=== PATIENT | male | born 1935 | race Caucasian/White ===

== ENCOUNTER → 2016-08-21 | Outpatient (CLI) | payer OTHER, BC ==
[~2016-08-21] MED LIST: APIDRA SOL100 UNIT/1 SC; BUMEX2 MG PO; CALCIUM + VITA1 EAC2 PO; DIOVAN160 MG PO; ERGOCALCIF50000 UNIT PO; HYDROCODON-ACE1 EAC7 PO; KLOR-CON M2020 MEQ PO; LANTUS 3 M100 UNITS1 SC; LEVAQUIN750 MG PO; LIPITOR20 MG PO; LO-DOSE ASPIRIN81 M1 PO; METOPROLOL TART25 MG PO; NORVASC10 MG PO; PREDNISONE20 MG PO; TOPROL XL25 MG PO; TRAMADOL HCL50 MG PO; TYLENOL EXTRA500 MG PO; VENTOLIN HFA18 GM IH; WARFARIN SODIU7.5 MG PO; WARFARIN SODIUM1 MG PO; WARFARIN SODIUM6 MG PO
== END | disposition home or self-care (01) ==
LOC: RAD 14:36
DX: R06.00 Dyspnea, unspecified (principal)
CPT/HCPCS: 70490; 71250

== ENCOUNTER 2016-12-23 19:34 | Inpatient (IN) | payer OTHER, BC ==
[~2016-12-23] VITALS: Ht 172.7 cm; Wt 118.1 kg
[~2016-12-23 19:34] MED LIST changes: +WARFARIN SODIUM5 MG PO; -WARFARIN SODIUM6 MG PO
[2016-12-23 21:05] LABS: INTER. NORMALIZED RATIO 2.2; PROTHROMBIN TIME 25.3 SEC (10.2-12.9)
[2016-12-23 21:09] LABS: CHLORIDE 98 mEq/L (99-109); POTASSIUM 4.9 mEq/L (3.7-5.4); SODIUM 135 mEq/L (136-147)
[2016-12-23 21:11] LABS: EOSINOPHIL (%) 0.2 % (0-5); GLUCOSE 201 mg/dL (70-99); HEMATOCRIT 32.3 % (38.0-50.0); IMMATURE GRANULOCYTE (%) 0.7 % (0.0-0.7); IMMATURE GRANULOCYTE COUNT 0.1 K/uL; INSTRUMENT ABS NEUTROPHIL CT 7.6 K/uL; LYMPHOCYTE COUNT 1.2 K/uL (1.0-2.8); MCV 73.2 FL (86-99); MONOCYTE (%) 12.5 % (3-12); MONOCYTE COUNT 1.3 K/uL (0-0.8); NEUTROPHIL (%) 74.7 % (45-76); NEUTROPHIL COUNT 7.6 K/uL (1.8-6.4); PLATELET COUNT 176 K/uL (156-360); RBC DIS.WIDTH-CV 19.9 % (11.8-14.6); RED BLOOD COUNT 4.41 M/uL (4.00-5.50); WHITE BLOOD COUNT 10.1 K/uL (4.1-10.2)
[2016-12-23 21:13] LABS: ANION GAP 12 MEQ/L (2-14); TOTAL BILIRUBIN 0.5 mg/dL (0.0-1.0)
[2016-12-23 21:15] LABS: ALKALINE PHOSPHATASE 104 IU/L (3-129); GFR ESTIMATE (CALCULATED) 52 mL/min/
[2016-12-23 21:16] LABS: UREA NITROGEN (BUN) 27 mg/dL (9-23)
[2016-12-23 21:17] LABS: DIRECT BILIRUBIN 0.3 mg/dL (0.0-0.3)
[2016-12-23 21:21] LABS: TROP-I INTERPRETATION NEGATIVE; TROPONIN-I 0.02 ng/mL (0.0-0.30)
[2016-12-23 22:28] LABS: ADD MIUA? YES; BILIRUBIN NEGATIVE; BLOOD SMALL; COLOR YELLOW ((YELLOW)); GLUCOSE (STRIP) 50; KETONES NEGATIVE; LEUKOCYTES NEGATIVE; NITRITE NEGATIVE; PROTEIN (STRIP) 100; SPECIFIC GRAVITY 1.024 (1.000-1.030); UROBILINOGEN 0.2 MG/DL (0.2-1.0)
[2016-12-23 22:31] LABS: BACTERIA NONE SEEN /HPF; EPITHELIAL CELLS RARE /HPF; MUCUS TRACE /LPF; RED BLOOD CELLS 0-5 /HPF (0-5); UCUL ADDED? NO; WHITE BLOOD CELLS 0-5 /HPF (0-5)
[2016-12-23] MEDS ORDERED: WARFARIN SODIUM5 MG PO (23:43)
[2016-12-23] MEDS ORDERED: TYLENOL ARTHRI650 MG PO (23:49)
[2016-12-24] VITALS (7 sets, daily range): BP systolic 139–169; BP diastolic 63–77
[2016-12-24 05:36] LABS: INTER. NORMALIZED RATIO 2.2; PROTHROMBIN TIME 25.3 SEC (10.2-12.9)
[2016-12-24 05:59] LABS: ALKALINE PHOSPHATASE 90 IU/L (3-129); ANION GAP 14 MEQ/L (2-14); CHLORIDE 102 MEQ/L (99-109); GFR ESTIMATE (CALCULATED) 56 mL/min/; GLUCOSE 137 mg/dL (70-99); POTASSIUM 4.2 MEQ/L (3.7-5.4); SAMPLE HEMOLYSIS CHECK 0; SAMPLE ICTERIC CHECK 0; SAMPLE LIPEMIA CHECK 0; SODIUM 137 MEQ/L (136-147); TOTAL BILIRUBIN 0.6 MG/DL (0.0-1.0); UREA NITROGEN (BUN) 24 mg/dL (9-23)
[2016-12-24 06:24] LABS: HEMATOCRIT 30.9 % (38.0-50.0); MCHC 30.1 G/DL (30.0-36.0); MEAN PLAT.VOLUME 11.9 uM^3 (9.0-12.4); PLATELET COUNT 174 K/uL (156-360); RBC DIS.WIDTH-CV 19.9 % (11.8-14.6); RBC DIS.WIDTH-SD 51.7 % (39-53); RED BLOOD COUNT 4.23 M/uL (4.00-5.50); WHITE BLOOD COUNT 11.6 K/uL (4.1-10.2)
[2016-12-24 07:37] LABS: POINT-OF-CARE METER ID UU14162513
[2016-12-24 12:30] LABS: POINT-OF-CARE METER ID UU14162513
[2016-12-24 17:01] LABS: POINT-OF-CARE METER ID UU13113700
[2016-12-24 20:51] LABS: POINT-OF-CARE METER ID UU14162513
[2016-12-24 21:43] LABS: POINT-OF-CARE METER ID UU13113700
[2016-12-25] VITALS (9 sets, daily range): BP systolic 137–186; BP diastolic 63–86
[2016-12-25 05:41] LABS: INTER. NORMALIZED RATIO 2.4; PROTHROMBIN TIME 27.8 SEC (10.2-12.9)
[2016-12-25 08:43] LABS: POINT-OF-CARE METER ID UU13113700
[2016-12-25 13:03] LABS: POINT-OF-CARE METER ID UU13113700
[2016-12-25 17:16] LABS: POINT-OF-CARE METER ID UU13113700
[2016-12-25 21:17] LABS: POINT-OF-CARE METER ID UU13113700
[2016-12-26 03:32] VITALS: BP 142/81
[2016-12-26 06:09] LABS: HEMATOCRIT 28.9 % (38.0-50.0); MCH 21.4 PG (29.0-34.0); MCHC 29.4 G/DL (30.0-36.0); MCV 72.8 FL (86-99); RBC DIS.WIDTH-CV 20.3 % (11.8-14.6); RBC DIS.WIDTH-SD 53.4 % (39-53); RED BLOOD COUNT 3.97 M/uL (4.00-5.50); WHITE BLOOD COUNT 9.1 K/uL (4.1-10.2)
[2016-12-26 06:12] LABS: INTER. NORMALIZED RATIO 2.9; PROTHROMBIN TIME 33.1 SEC (10.2-12.9)
[2016-12-26 06:26] LABS: ANION GAP 9 MEQ/L (2-14); CHLORIDE 107 MEQ/L (99-109); GFR ESTIMATE (CALCULATED) > 59 mL/min/; GLUCOSE 128 mg/dL (70-99); POTASSIUM 3.9 MEQ/L (3.7-5.4); SAMPLE HEMOLYSIS CHECK 0; SAMPLE ICTERIC CHECK 0; SAMPLE LIPEMIA CHECK 0; SODIUM 141 MEQ/L (136-147); UREA NITROGEN (BUN) 24 mg/dL (9-23)
[2016-12-26 07:16] LABS: PLAT.SUFFICIENCY ADEQUATE; PLATELET COUNT 175 K/uL (156-360)
[2016-12-26 07:50] VITALS: BP 151/71
[2016-12-26 13:14] VITALS: BP 131/88
[2016-12-26 16:58] VITALS: BP 134/78
[2016-12-26 17:26] LABS: POINT-OF-CARE METER ID UU13113700
[2016-12-26 19:10] VITALS: BP 154/73
[2016-12-26 21:31] LABS: POINT-OF-CARE METER ID UU13113700
[2016-12-27 00:28] VITALS: BP 146/72
[2016-12-27 04:27] VITALS: BP 156/88
[2016-12-27 05:36] LABS: INTER. NORMALIZED RATIO 3.3; PROTHROMBIN TIME 38.1 SEC (10.2-12.9)
[2016-12-27 06:03] LABS: HEMATOCRIT 28.1 % (38.0-50.0); MCH 21.7 PG (29.0-34.0); MCHC 29.5 G/DL (30.0-36.0); MCV 73.4 FL (86-99); MEAN PLAT.VOLUME 11.8 uM^3 (9.0-12.4); PLATELET COUNT 201 K/uL (156-360); RBC DIS.WIDTH-CV 20.7 % (11.8-14.6); RBC DIS.WIDTH-SD 54.4 % (39-53); RED BLOOD COUNT 3.83 M/uL (4.00-5.50); WHITE BLOOD COUNT 8.5 K/uL (4.1-10.2)
[2016-12-27 07:40] LABS: ANION GAP 7 MEQ/L (2-14); CHLORIDE 108 MEQ/L (99-109); GFR ESTIMATE (CALCULATED) > 59 mL/min/; IRON 15 MCG/DL (35-150); POTASSIUM 3.9 MEQ/L (3.7-5.4); SAMPLE HEMOLYSIS CHECK 0; SAMPLE ICTERIC CHECK 0; SAMPLE LIPEMIA CHECK 0; SODIUM 142 MEQ/L (136-147); UREA NITROGEN (BUN) 24 mg/dL (9-23)
[2016-12-27 07:41] LABS: GLUCOSE 91 mg/dL (70-99)
[2016-12-27 07:51] LABS: FERRITIN 93 NG/ML (22-322)
[2016-12-27 09:50] VITALS: BP 158/73
[2016-12-27 12:11] LABS: POINT-OF-CARE METER ID UU13113700
[2016-12-27 12:26] VITALS: BP 132/81
[2016-12-27 22:57] LABS: GLUCOSE 221 mg/dL (70-99)
[2016-12-27 23:10] VITALS: BP 180/79
[2016-12-28] VITALS (8 sets, daily range): BP systolic 101–183; BP diastolic 63–80
[2016-12-28 05:20] LABS: HEMATOCRIT 27.6 % (38.0-50.0); MCH 21.2 PG (29.0-34.0); MCV 73.2 FL (86-99); MEAN PLAT.VOLUME 11.1 uM^3 (9.0-12.4); PLATELET COUNT 230 K/uL (156-360); RBC DIS.WIDTH-CV 20.5 % (11.8-14.6); RBC DIS.WIDTH-SD 54.2 % (39-53); RED BLOOD COUNT 3.77 M/uL (4.00-5.50); WHITE BLOOD COUNT 9.3 K/uL (4.1-10.2)
[2016-12-28 05:25] LABS: INTER. NORMALIZED RATIO 3.4; PROTHROMBIN TIME 38.9 SEC (10.2-12.9)
[2016-12-28 05:50] LABS: ANION GAP 9 MEQ/L (2-14); CHLORIDE 111 MEQ/L (99-109); GFR ESTIMATE (CALCULATED) > 59 mL/min/; POTASSIUM 4.5 MEQ/L (3.7-5.4); SAMPLE HEMOLYSIS CHECK 0; SAMPLE ICTERIC CHECK 0; SAMPLE LIPEMIA CHECK 0; SODIUM 146 MEQ/L (136-147); UREA NITROGEN (BUN) 22 mg/dL (9-23)
[2016-12-28 06:17] LABS: GLUCOSE 108 mg/dL (70-99)
[2016-12-28 12:47] LABS: POINT-OF-CARE METER ID UU14162513
[2016-12-28 17:57] LABS: POINT-OF-CARE METER ID UU14162513
[2016-12-28 21:23] LABS: POINT-OF-CARE METER ID UU14162513
[2016-12-29 00:10] VITALS: BP 158/70
[2016-12-29 03:41] VITALS: BP 183/80
[2016-12-29 06:05] LABS: HEMATOCRIT 27.8 % (38.0-50.0); MCHC 29.9 G/DL (30.0-36.0); MCV 73.5 FL (86-99); MEAN PLAT.VOLUME 11.2 uM^3 (9.0-12.4); PLATELET COUNT 266 K/uL (156-360); RBC DIS.WIDTH-CV 20.6 % (11.8-14.6); RBC DIS.WIDTH-SD 54.2 % (39-53); RED BLOOD COUNT 3.78 M/uL (4.00-5.50); WHITE BLOOD COUNT 9.4 K/uL (4.1-10.2)
[2016-12-29 06:38] LABS: ANION GAP 7 MEQ/L (2-14); CHLORIDE 108 MEQ/L (99-109); GFR ESTIMATE (CALCULATED) > 59 mL/min/; GLUCOSE 82 mg/dL (70-99); POTASSIUM 4.2 MEQ/L (3.7-5.4); SAMPLE HEMOLYSIS CHECK 0; SAMPLE ICTERIC CHECK 0; SAMPLE LIPEMIA CHECK 0; SODIUM 144 MEQ/L (136-147); UREA NITROGEN (BUN) 17 mg/dL (9-23)
[2016-12-29 07:41] VITALS: BP 108/62; BP 168/81
[2016-12-29 07:53] LABS: ANISOCYTOSIS 1+; BASOPHIL COUNT 0.1 K/uL (0-0.1); EOSINOPHIL (%) 5.9 % (0-5); EOSINOPHIL COUNT 0.6 K/uL (0-0.3); HYPOCHROMASIA 2+; IMMATURE GRANULOCYTE (%) 0.7 % (0.0-0.7); IMMATURE GRANULOCYTE COUNT 0.1 K/uL; INSTRUMENT ABS NEUTROPHIL CT 5.8 K/uL; MONOCYTE (%) 9.1 % (3-12); MONOCYTE COUNT 0.9 K/uL (0-0.8); NEUTROPHIL (%) 61.9 % (45-76); NEUTROPHIL COUNT 5.8 K/uL (1.8-6.4); OVALOCYTES 1+; PLAT.SUFFICIENCY ADEQUATE; POIKILOCYTOSIS 1+; POLYCHROMASIA 1+
[2016-12-29 08:25] LABS: POINT-OF-CARE METER ID UU14162513
[2016-12-29 09:23] LABS: INTER. NORMALIZED RATIO 2.8; PROTHROMBIN TIME 31.6 SEC (10.2-12.9)
[2016-12-29 10:46] VITALS: BP 139/71
[2016-12-29 12:47] LABS: POINT-OF-CARE METER ID UU13113831
[2016-12-29 17:53] LABS: POINT-OF-CARE METER ID UU13113819
[2016-12-29 19:30] VITALS: BP 136/69
[2016-12-29 20:03] LABS: INTERNAL CONTROL VALID? YES
[2016-12-30 00:21] VITALS: BP 160/72
[2016-12-30 04:42] VITALS: BP 132/73
[2016-12-30 05:48] LABS: BASOPHIL COUNT 0.1 K/uL (0-0.1); EOSINOPHIL (%) 5.4 % (0-5); EOSINOPHIL COUNT 0.5 K/uL (0-0.3); HEMATOCRIT 27.9 % (38.0-50.0); IMMATURE GRANULOCYTE (%) 0.9 % (0.0-0.7); IMMATURE GRANULOCYTE COUNT 0.1 K/uL; LYMPHOCYTE COUNT 1.5 K/uL (1.0-2.8); MCH 21.1 PG (29.0-34.0); MCHC 28.3 G/DL (30.0-36.0); MCV 74.6 FL (86-99); MEAN PLAT.VOLUME 11.3 uM^3 (9.0-12.4); MONOCYTE (%) 9.1 % (3-12); MONOCYTE COUNT 0.8 K/uL (0-0.8); NEUTROPHIL (%) 67.3 % (45-76); PLATELET COUNT 287 K/uL (156-360); RBC DIS.WIDTH-CV 20.6 % (11.8-14.6); RBC DIS.WIDTH-SD 54.6 % (39-53); RED BLOOD COUNT 3.74 M/uL (4.00-5.50); WHITE BLOOD COUNT 8.9 K/uL (4.1-10.2)
[2016-12-30 06:09] LABS: ANION GAP 7 MEQ/L (2-14); CHLORIDE 107 MEQ/L (99-109); GFR ESTIMATE (CALCULATED) > 59 mL/min/; POTASSIUM 4.6 MEQ/L (3.7-5.4); SAMPLE HEMOLYSIS CHECK 0; SAMPLE ICTERIC CHECK 0; SAMPLE LIPEMIA CHECK 0; SODIUM 140 MEQ/L (136-147); UREA NITROGEN (BUN) 16 mg/dL (9-23)
[2016-12-30 06:11] LABS: GLUCOSE 146 mg/dL (70-99)
[2016-12-30 07:55] VITALS: BP 147/70
[2016-12-30 11:33] VITALS: BP 117/70
[2016-12-30 12:43] LABS: POINT-OF-CARE METER ID UU14162513
[2016-12-30] MEDS ORDERED: AMPICILLIN SODIU2 GM IM (12:54)
[2016-12-30] MEDS ORDERED: FERROUS SULFAT325 MG PO ×2 (12:55→16:32)
[2016-12-30] MEDS ORDERED: PANTOPRAZOLE SO40 MG PO ×2 (12:55→16:32)
[2016-12-30] MEDS ORDERED: COLACE100 MG PO ×2 (12:56→16:32)
== END 2016-12-30 14:54 | disposition home or self-care (01) | DRG 872 ==
LOC: EME 19:34 → EDOF 23:45 → ENRESERV 23:46 → EDOF 12-24 01:17 → 5WEST 12-24 01:23
PROVIDERS: Emergency Medicine; Family Medicine; Internal Medicine; Nurse Practitioner Family; Student in an Organized Health Care Education/Training Program
PROC: 0DB68ZX Excision of Stomach, Via Natural or Artificial Opening Endoscopic, Diagnostic (ICD-10-PCS; principal; 2016-12-23)
PROC: 5A09357 Assistance with Respiratory Ventilation, Less than 24 Consecutive Hours, Continuous Positive Airway Pressure (ICD-10-PCS; principal; 2016-12-23)
DX: A41.81 Sepsis due to Enterococcus (principal); J98.11 Atelectasis; I12.9 Hypertensive chronic kidney disease with stage 1 through stage 4 chronic kidney disease, or unspecified chronic kidney disease; E66.01 Morbid (severe) obesity due to excess calories; E86.0 Dehydration; D50.9 Iron deficiency anemia, unspecified; E11.22 Type 2 diabetes mellitus with diabetic chronic kidney disease; E87.1 Hypo-osmolality and hyponatremia; I48.91 Unspecified atrial fibrillation; N18.9 Chronic kidney disease, unspecified; K29.80 Duodenitis without bleeding; K26.9 Duodenal ulcer, unspecified as acute or chronic, without hemorrhage or perforation; K25.9 Gastric ulcer, unspecified as acute or chronic, without hemorrhage or perforation; J98.4 Other disorders of lung; I48.2 Chronic atrial fibrillation; I25.10 Atherosclerotic heart disease of native coronary artery without angina pectoris; G47.33 Obstructive sleep apnea (adult) (pediatric); E78.5 Hyperlipidemia, unspecified; Z96.653 Presence of artificial knee joint, bilateral; Z66 Do not resuscitate; Z95.3 Presence of xenogenic heart valve; Z79.4 Long term (current) use of insulin; Z79.82 Long term (current) use of aspirin; Z79.01 Long term (current) use of anticoagulants; Z68.39 Body mass index [BMI] 39.0-39.9, adult; Z79.899 Other long term (current) drug therapy; Z87.891 Personal history of nicotine dependence; Z86.73 Personal history of transient ischemic attack (TIA), and cerebral infarction without residual deficits; Z95.1 Presence of aortocoronary bypass graft; Z82.49 Family history of ischemic heart disease and other diseases of the circulatory system
CPT/HCPCS: 71010; 71020; 71250; 74177; 76937; 80048; 80053; 80076; 81003; 82272; 82728; 82948; 83540; 83605; 83880; 84466; 84484; 84999; 85025; 85027; 85610; 87040; 87077; 87186; 87502; 87801; 88305; 88342 TC; 93005; 93306; 94640; 94760; 94799; 99202; 99281; 99285; C1894; G0378; J0290; J0696; J1815; J7030; J7050

== ENCOUNTER 2017-01-17 15:46 | Observation (INO) | payer OTHER, BC ==
[~2017-01-17] VITALS: Ht 172.7 cm; Wt 113.9 kg
[~2017-01-17 15:46] MED LIST changes: +AMPICILLIN SODIU2 GM IM; +COLACE100 MG PO; +FERROUS SULFAT325 MG PO; +PANTOPRAZOLE SO40 MG PO; +TYLENOL ARTHRI650 MG PO
[2017-01-17 16:29] LABS: HEMATOCRIT 24.9 % (38.0-50.0); MCH 23.7 PG (29.0-34.0); MCHC 29.3 G/DL (30.0-36.0); MCV 80.8 FL (86-99); MEAN PLAT.VOLUME 11.5 uM^3 (9.0-12.4); PLATELET COUNT 254 K/uL (156-360); RBC DIS.WIDTH-CV 24.1 % (11.8-14.6); RBC DIS.WIDTH-SD 70.1 % (39-53); RED BLOOD COUNT 3.08 M/uL (4.00-5.50); WHITE BLOOD COUNT 8.3 K/uL (4.1-10.2)
[2017-01-17 16:31] LABS: CHLORIDE 108 mEq/L (99-109); SODIUM 141 mEq/L (136-147)
[2017-01-17 16:32] LABS: GLUCOSE 142 mg/dL (70-99)
[2017-01-17 16:34] LABS: ANION GAP 12 MEQ/L (2-14)
[2017-01-17 16:36] LABS: GFR ESTIMATE (CALCULATED) 48 mL/min/
[2017-01-17 16:37] LABS: UREA NITROGEN (BUN) 28 mg/dL (9-23)
[2017-01-17 16:45] LABS: TROP-I INTERPRETATION NEGATIVE; TROPONIN-I < 0.01 ng/mL (0.0-0.30)
[2017-01-17] MEDS ORDERED: COLACE100 MG PO (18:03)
[2017-01-17] MEDS ORDERED: IRON325 M1 PO (18:06)
[2017-01-17] MEDS ORDERED: COUMADIN7.5 MG PO (18:15)
[2017-01-17] MEDS ORDERED: PROTONIX20 MG PO (18:22)
[2017-01-17] MEDS ORDERED: BUMEX1 MG PO (18:23)
[2017-01-17] MEDS ORDERED: BASAGLAR K100 UNIT/1 SC (18:24)
[2017-01-17] MEDS ORDERED: K-DUR10 MEQ PO (18:27)
[2017-01-17] MEDS ORDERED: AYR SALINE NA14.1 GM BOTH NARES (18:30)
[2017-01-17 20:52] VITALS: BP 112/44
[2017-01-17 22:05] LABS: POINT-OF-CARE METER ID UU14162513
[2017-01-17 23:00] VITALS: BP 142/71
[2017-01-17 23:15] VITALS: BP 135/63
[2017-01-18] VITALS (11 sets, daily range): BP systolic 125–160; BP diastolic 60–71
[2017-01-18 05:04] LABS: METH RESISTANT S AUREUS PCR NEGATIVE (NEGATIVE)
[2017-01-18 05:16] LABS: PROBE CHECK PASS; SPECIMEN PROCESSING CONTROL PASS
[2017-01-18 05:58] LABS: POINT-OF-CARE METER ID UU14162513
[2017-01-18 06:30] LABS: HEMATOCRIT 28.9 % (38.0-50.0); MCV 81.2 FL (86-99)
[2017-01-18 06:56] LABS: ALKALINE PHOSPHATASE 94 IU/L (3-129); ANION GAP 6 MEQ/L (2-14); CHLORIDE 108 MEQ/L (99-109); GFR ESTIMATE (CALCULATED) 56 mL/min/; GLUCOSE 78 mg/dL (70-99); SAMPLE HEMOLYSIS CHECK 0; SAMPLE ICTERIC CHECK 0; SAMPLE LIPEMIA CHECK 0; SODIUM 141 MEQ/L (136-147); TOTAL BILIRUBIN 0.6 MG/DL (0.0-1.0); UREA NITROGEN (BUN) 23 mg/dL (9-23)
[2017-01-18 13:00] LABS: POINT-OF-CARE METER ID UU13113700
[2017-01-18 13:23] LABS: MCH 24.6 PG (29.0-34.0); RBC DIS.WIDTH-CV 21.2 % (11.8-14.6); RBC DIS.WIDTH-SD 63.8 % (39-53); WHITE BLOOD COUNT 8.9 K/uL (4.1-10.2)
[2017-01-18 13:25] LABS: RED BLOOD COUNT 3.78 M/uL (4.00-5.50)
[2017-01-18 14:06] LABS: HEMATOLOGY COMMENT 1 SMEAR COMPATIBLE; MEAN PLAT.VOLUME 11.8 uM^3 (9.0-12.4); PLAT.SUFFICIENCY ADEQUATE; PLATELET COUNT 244 K/uL (156-360)
[2017-01-18 14:53] LABS: POINT-OF-CARE METER ID UU14162513
[2017-01-18 16:48] LABS: POINT-OF-CARE METER ID UU13113819
[2017-01-18 21:47] LABS: HEMATOCRIT 30.6 % (38.0-50.0); MCV 81.6 FL (86-99)
[2017-01-18 22:46] LABS: POINT-OF-CARE METER ID UU14162513
[2017-01-19 00:09] VITALS: BP 129/58
[2017-01-19 03:09] VITALS: BP 140/75
[2017-01-19 05:28] LABS: HEMATOCRIT 31.5 % (38.0-50.0); MCV 83.3 FL (86-99)
[2017-01-19 07:18] VITALS: BP 140/83
[2017-01-19 07:45] LABS: POINT-OF-CARE METER ID UU13113831
[2017-01-19 10:56] VITALS: BP 121/58
[2017-01-19 12:12] LABS: POINT-OF-CARE METER ID UU13113831
== END 2017-01-19 13:30 | disposition home or self-care (01) ==
LOC: EME 15:46 → 5WEST 18:29 → EDOF 18:29 → ENRESERV 18:41 → 5WEST 20:31
PROVIDERS: Hospitalist; Nurse Practitioner Adult Health
DX: D62 Acute posthemorrhagic anemia (principal); I48.91 Unspecified atrial fibrillation; I25.10 Atherosclerotic heart disease of native coronary artery without angina pectoris; E11.9 Type 2 diabetes mellitus without complications; I10 Essential (primary) hypertension; E78.5 Hyperlipidemia, unspecified; G47.30 Sleep apnea, unspecified; Z95.2 Presence of prosthetic heart valve; Z79.01 Long term (current) use of anticoagulants; N17.9 Acute kidney failure, unspecified; E66.01 Morbid (severe) obesity due to excess calories; Z86.19 Personal history of other infectious and parasitic diseases; K64.9 Unspecified hemorrhoids; Z87.11 Personal history of peptic ulcer disease; Z87.891 Personal history of nicotine dependence; Z82.3 Family history of stroke; Z88.2 Allergy status to sulfonamides; Z88.8 Allergy status to other drugs, medicaments and biological substances; Z88.0 Allergy status to penicillin
CPT/HCPCS: 80048; 80053; 82948; 84484; 85014; 85018; 85027; 86850; 86900; 86901; 86920; 87641; 93005; C9113; G0378; J1815; J2250; J7030; P9016

== ENCOUNTER 2017-03-27 22:19 | Inpatient (IN) | payer OTHER, BC ==
[~2017-03-27] VITALS: Ht 172.7 cm; Wt 109.7 kg
[~2017-03-27 22:19] MED LIST changes: +AYR SALINE NA14.1 GM BOTH NARES; +BASAGLAR K100 UNIT/1 SC; +BUMEX1 MG PO; +COUMADIN7.5 MG PO; +ELIQUIS5 MG PO; +IRON325 M1 PO; +K-DUR10 MEQ PO; -METOPROLOL TART25 MG PO; +PROTONIX20 MG PO; +PROTONIX40 MG PO
[2017-03-28 06:09] VITALS: BP 135/65
[2017-03-28 06:19] LABS: CHLORIDE 104 mEq/L (99-109); POTASSIUM 4.3 mEq/L (3.7-5.4); SODIUM 140 mEq/L (136-147)
[2017-03-28 06:20] LABS: GLUCOSE 188 mg/dL (70-99)
[2017-03-28 06:24] LABS: CREATININE 1.3 mg/dL (0.6-1.3); GFR ESTIMATE (CALCULATED) 56 mL/min/ (58.99-99999)
[2017-03-28 06:25] LABS: UREA NITROGEN (BUN) 27 mg/dL (9-23)
[2017-03-28 07:32] LABS: CARCINOEMBR.ANTIGEN 7.2 NG/ML
[2017-03-28 12:30] VITALS: BP 145/71
[2017-03-28 15:00] VITALS: BP 142/69
[2017-03-28 17:36] LABS: HEMATOCRIT 33.1 % (38.0-50.0); HEMOGLOBIN 10.1 G/DL (12.5-16.6); MCH 25.4 PG (29.0-34.0); MCHC 30.5 G/DL (30.0-36.0); MCV 83.4 FL (86-99); PLATELET COUNT 230 K/uL (156-360); RBC DIS.WIDTH-CV 16.3 % (11.8-14.6); RBC DIS.WIDTH-SD 49.4 % (39-53); RED BLOOD COUNT 3.97 M/uL (4.00-5.50); WHITE BLOOD COUNT 16.8 K/uL (4.1-10.2)
[2017-03-28 19:30] VITALS: BP 136/72
[2017-03-28 22:16] VITALS: BP 153/72
[2017-03-29] VITALS (7 sets, daily range): BP systolic 131–172; BP diastolic 60–76
[2017-03-29 06:54] LABS: HEMATOCRIT 32.1 % (38.0-50.0); HEMOGLOBIN 9.9 G/DL (12.5-16.6); MCHC 30.8 G/DL (30.0-36.0); MCV 84.3 FL (86-99); RBC DIS.WIDTH-CV 16.8 % (11.8-14.6); RBC DIS.WIDTH-SD 51.9 % (39-53); RED BLOOD COUNT 3.81 M/uL (4.00-5.50); WHITE BLOOD COUNT 15.2 K/uL (4.1-10.2)
[2017-03-29 07:07] LABS: CHLORIDE 104 MEQ/L (99-109); CREATININE 1.1 MG/DL (0.6-1.3); GFR ESTIMATE (CALCULATED) > 59 mL/min/ (58.99-99999); GLUCOSE 243 mg/dL (70-99); MAGNESIUM 1.9 mg/dl (1.3-2.7); PHOSPHORUS 3.6 mg/dL (2.5-4.9); POTASSIUM 4.8 MEQ/L (3.7-5.4); SODIUM 139 MEQ/L (136-147); UREA NITROGEN (BUN) 20 mg/dL (9-23)
[2017-03-29 07:33] LABS: PLAT.SUFFICIENCY ADEQUATE; PLATELET COUNT 221 K/uL (156-360)
[2017-03-30] VITALS (7 sets, daily range): BP systolic 115–144; BP diastolic 58–66
[2017-03-30 06:39] LABS: HEMATOCRIT 33.1 % (38.0-50.0); HEMOGLOBIN 10.1 G/DL (12.5-16.6); MCH 25.6 PG (29.0-34.0); MCHC 30.5 G/DL (30.0-36.0); MCV 83.8 FL (86-99); PLATELET COUNT 217 K/uL (156-360); RBC DIS.WIDTH-CV 16.8 % (11.8-14.6); RBC DIS.WIDTH-SD 52.4 % (39-53); RED BLOOD COUNT 3.95 M/uL (4.00-5.50); WHITE BLOOD COUNT 14.9 K/uL (4.1-10.2)
[2017-03-30 07:01] LABS: CHLORIDE 103 MEQ/L (99-109); CREATININE 1.1 MG/DL (0.6-1.3); GFR ESTIMATE (CALCULATED) > 59 mL/min/ (58.99-99999); GLUCOSE 238 mg/dL (70-99); MAGNESIUM 1.8 mg/dl (1.3-2.7); POTASSIUM 4.6 MEQ/L (3.7-5.4); SODIUM 138 MEQ/L (136-147); UREA NITROGEN (BUN) 16 mg/dL (9-23)
[2017-03-31 04:30] VITALS: BP 134/67
[2017-03-31 06:49] LABS: HEMATOCRIT 32.3 % (38.0-50.0); HEMOGLOBIN 9.8 G/DL (12.5-16.6); MCH 25.7 PG (29.0-34.0); MCHC 30.3 G/DL (30.0-36.0); MCV 84.8 FL (86-99); PLATELET COUNT 208 K/uL (156-360); RBC DIS.WIDTH-SD 52.4 % (39-53); RED BLOOD COUNT 3.81 M/uL (4.00-5.50); WHITE BLOOD COUNT 9.9 K/uL (4.1-10.2)
[2017-03-31 07:18] LABS: CHLORIDE 102 MEQ/L (99-109); GFR ESTIMATE (CALCULATED) > 59 mL/min/ (58.99-99999); GLUCOSE 135 mg/dL (70-99); POTASSIUM 4.4 MEQ/L (3.7-5.4); SODIUM 138 MEQ/L (136-147); UREA NITROGEN (BUN) 17 mg/dL (9-23)
[2017-03-31 08:27] VITALS: BP 143/68
[2017-03-31 11:41] VITALS: BP 126/60
[2017-03-31 15:59] VITALS: BP 107/54
[2017-03-31 19:42] VITALS: BP 136/64
[2017-04-01] VITALS (7 sets, daily range): BP systolic 118–160; BP diastolic 59–74
[2017-04-01 06:37] LABS: HEMATOCRIT 31.5 % (38.0-50.0); HEMOGLOBIN 9.7 G/DL (12.5-16.6); MCH 25.6 PG (29.0-34.0); MCHC 30.8 G/DL (30.0-36.0); MCV 83.1 FL (86-99); RBC DIS.WIDTH-CV 16.3 % (11.8-14.6); RBC DIS.WIDTH-SD 50.1 % (39-53); RED BLOOD COUNT 3.79 M/uL (4.00-5.50); WHITE BLOOD COUNT 7.3 K/uL (4.1-10.2)
[2017-04-01 07:02] LABS: CHLORIDE 104 MEQ/L (99-109); CREATININE 1.2 MG/DL (0.6-1.3); GFR ESTIMATE (CALCULATED) > 59 mL/min/ (58.99-99999); GLUCOSE 154 mg/dL (70-99); POTASSIUM 4.1 MEQ/L (3.7-5.4); SODIUM 137 MEQ/L (136-147); UREA NITROGEN (BUN) 20 mg/dL (9-23)
[2017-04-01 07:07] LABS: PLAT.SUFFICIENCY ADEQUATE; PLATELET COUNT 240 K/uL (156-360)
[2017-04-02 04:02] VITALS: BP 136/63
[2017-04-02 05:40] LABS: HEMATOCRIT 30.6 % (38.0-50.0); HEMOGLOBIN 9.7 G/DL (12.5-16.6); MCHC 31.7 G/DL (30.0-36.0); RBC DIS.WIDTH-CV 16.3 % (11.8-14.6); RBC DIS.WIDTH-SD 49.1 % (39-53); RED BLOOD COUNT 3.73 M/uL (4.00-5.50); WHITE BLOOD COUNT 6.4 K/uL (4.1-10.2)
[2017-04-02 06:05] LABS: CHLORIDE 107 MEQ/L (99-109); CREATININE 1.1 MG/DL (0.6-1.3); GFR ESTIMATE (CALCULATED) > 59 mL/min/ (58.99-99999); GLUCOSE 128 mg/dL (70-99); SODIUM 139 MEQ/L (136-147); UREA NITROGEN (BUN) 16 mg/dL (9-23)
[2017-04-02 06:45] VITALS: BP 138/65
[2017-04-02 06:49] LABS: PLAT.SUFFICIENCY ADEQUATE; PLATELET COUNT 242 K/uL (156-360)
[2017-04-02 11:00] VITALS: BP 140/67
[2017-04-02] MEDS ORDERED: HYDROCODON-ACE1 EAC7 PO (11:59)
== END 2017-04-02 16:12 | disposition home or self-care (01) | DRG 330 ==
LOC: ENRESERV 22:19 → 5EAST 03-28 05:15 → 2SOUTH 03-28 05:15 → 5EAST 03-28 12:14 → 2SOUTH 03-28 13:43 → ENPENDDIS 04-02 → 5EAST 04-02 16:12
PROVIDERS: Physician Assistant; Surgery
PROC: 0DTL0ZZ Resection of Transverse Colon, Open Approach (ICD-10-PCS; principal; 2017-03-28)
DX: C18.4 Malignant neoplasm of transverse colon (principal); C77.2 Secondary and unspecified malignant neoplasm of intra-abdominal lymph nodes; Z96.653 Presence of artificial knee joint, bilateral; I10 Essential (primary) hypertension; K21.9 Gastro-esophageal reflux disease without esophagitis; I25.10 Atherosclerotic heart disease of native coronary artery without angina pectoris; M19.90 Unspecified osteoarthritis, unspecified site; G47.33 Obstructive sleep apnea (adult) (pediatric); E11.9 Type 2 diabetes mellitus without complications; G89.29 Other chronic pain; M54.9 Dorsalgia, unspecified; I38 Endocarditis, valve unspecified; E66.9 Obesity, unspecified; Z68.36 Body mass index [BMI] 36.0-36.9, adult; Z79.4 Long term (current) use of insulin; Z95.2 Presence of prosthetic heart valve; Z79.01 Long term (current) use of anticoagulants
CPT/HCPCS: 36415; 80048; 82378; 82948; 83735; 84100; 85025; 85027; 86850; 86900; 86901; 86920; 88309; 94660; 94760; 94799; J0131; J1100; J1170; J1335; J1650; J1815; J1885; J2001; J2405; J2710; J2795; J3010; J3475; J7050; J7120; P9045; S0020

== ENCOUNTER 2017-05-04 08:12 | Day surgery (SDC) | payer OTHER, BC ==
[~2017-05-04] VITALS: Ht 170.2 cm; Wt 109.8 kg
[~2017-05-04 08:12] MED LIST changes: +COMPAZINE10 MG PO
[2017-05-04 08:59] VITALS: BP 146/69
[2017-05-04 13:01] VITALS: BP 150/67
[2017-05-08] MEDS ORDERED: COLACE100 MG PO (08:39)
== END 2017-05-04 13:15 | disposition home or self-care (01) ==
LOC: SDC 08:12
PROVIDERS: Surgery
DX: I87.8 Other specified disorders of veins (principal); C18.4 Malignant neoplasm of transverse colon; Z95.3 Presence of xenogenic heart valve; Z96.653 Presence of artificial knee joint, bilateral; Z79.01 Long term (current) use of anticoagulants; I10 Essential (primary) hypertension; E11.9 Type 2 diabetes mellitus without complications; G47.30 Sleep apnea, unspecified; K21.9 Gastro-esophageal reflux disease without esophagitis; I25.10 Atherosclerotic heart disease of native coronary artery without angina pectoris; M19.90 Unspecified osteoarthritis, unspecified site; D64.9 Anemia, unspecified; Z79.4 Long term (current) use of insulin
CPT/HCPCS: 71045; 82948; C1751; C1769; J0690; J2405; J3010

== ENCOUNTER 2017-05-29 16:39 | Inpatient (IN) | payer OTHER, BC ==
[~2017-05-29] VITALS: Ht 172.7 cm; Wt 107.9 kg
[2017-05-29 17:42] LABS: HEMATOCRIT 40.7 % (38.0-50.0); HEMOGLOBIN 13.4 G/DL (12.5-16.6); MCH 26.1 PG (29.0-34.0); MCHC 32.9 G/DL (30.0-36.0); MCV 79.2 FL (86-99); PLATELET COUNT 278 K/uL (156-360); RBC DIS.WIDTH-CV 17.9 % (11.8-14.6); RBC DIS.WIDTH-SD 48.5 % (39-53); RED BLOOD COUNT 5.14 M/uL (4.00-5.50); WHITE BLOOD COUNT 9.7 K/uL (4.1-10.2)
[2017-05-29 17:50] LABS: ALBUMIN 3.3 g/dL (3.2-4.8); CHLORIDE 102 mEq/L (99-109); POTASSIUM 3.6 mEq/L (3.7-5.4); SODIUM 141 mEq/L (136-147)
[2017-05-29 17:52] LABS: GLUCOSE 154 mg/dL (70-99); TOTAL PROTEIN 6.3 g/dL (6.4-8.3)
[2017-05-29 17:54] LABS: TOTAL BILIRUBIN 0.5 mg/dL (0.0-1.0)
[2017-05-29 17:56] LABS: ALKALINE PHOSPHATASE 85 IU/L (3-129); CREATININE 1.3 mg/dL (0.6-1.3); GFR ESTIMATE (CALCULATED) 56 mL/min/ (58.99-99999)
[2017-05-29 17:57] LABS: UREA NITROGEN (BUN) 35 mg/dL (9-23)
[2017-05-29 17:58] LABS: AST (GOT) 13 IU/L (2-34)
[2017-05-29 17:59] LABS: ALT (GPT) 9 IU/L (3-49)
[2017-05-29 21:32] LABS: ABS NEUTROPHIL COUNT 5.8; ATYPICAL LYMPHOCYTE 6.1 %; BAND NEUTROPHILS 36.5 % (0-8.0); BASOPH.STIPPLING 1+; BASOPHILS 0.8 %; EOSINOPHIL ABS CT 0; LYMPHOCYTES 8.7 % (15.0-45.0); METAMYELOCYTES 0.9 %; MONOCYTES 23.5 % (0-9.0); OVALOCYTES 1+; PLAT.SUFFICIENCY ADEQUATE; POIKILOCYTOSIS 2+; POLYCHROMASIA 1+; SEG.NEUTROPHILS 23.5 % (46.0-76.0)
[2017-05-29] MEDS ORDERED: PANTOPRAZOLE SO40 MG PO (23:10)
[2017-05-29] MEDS ORDERED: NYSTATIN15 GM TP (23:11)
[2017-05-29] MEDS ORDERED: METOPROLOL TART25 MG PO (23:12)
[2017-05-29] MEDS ORDERED: AMLODIPINE BESY10 MG PO (23:14)
[2017-05-29] MEDS ORDERED: BUMETANIDE2 MG PO (23:14)
[2017-05-29] MEDS ORDERED: K-DUR20 MEQ PO (23:16)
[2017-05-29] MEDS ORDERED: VALSARTAN160 MG PO (23:17)
[2017-05-29] MEDS ORDERED: ATORVASTATIN CA20 MG PO (23:18)
[2017-05-30 00:24] VITALS: BP 133/93
[2017-05-30 03:51] VITALS: BP 152/71
[2017-05-30 05:41] LABS: BASOPHIL (%) 0.9 % (0-1); BASOPHIL COUNT 0.1 K/uL (0-0.1); EOSINOPHIL (%) 5.6 % (0-5); EOSINOPHIL COUNT 0.5 K/uL (0-0.3); HEMATOCRIT 38.5 % (38.0-50.0); HEMOGLOBIN 12.1 G/DL (12.5-16.6); IMMATURE GRANULOCYTE (%) 0.6 % (0.0-0.7); LYMPHOCYTE (%) 21.6 % (15-42); LYMPHOCYTE COUNT 1.9 K/uL (1.0-2.8); MCH 25.3 PG (29.0-34.0); MCHC 31.4 G/DL (30.0-36.0); MCV 80.5 FL (86-99); MONOCYTE (%) 21.7 % (3-12); MONOCYTE COUNT 1.9 K/uL (0-0.8); NEUTROPHIL (%) 49.6 % (45-76); NEUTROPHIL COUNT 4.3 K/uL (1.8-6.4); PLATELET COUNT 238 K/uL (156-360); RBC DIS.WIDTH-CV 17.4 % (11.8-14.6); RBC DIS.WIDTH-SD 49.7 % (39-53); RED BLOOD COUNT 4.78 M/uL (4.00-5.50); WHITE BLOOD COUNT 8.6 K/uL (4.1-10.2)
[2017-05-30 05:43] LABS: CHLORIDE 104 MEQ/L (99-109); CREATININE 1.2 MG/DL (0.6-1.3); GFR ESTIMATE (CALCULATED) > 59 mL/min/ (58.99-99999); POTASSIUM 3.3 MEQ/L (3.7-5.4); SODIUM 143 MEQ/L (136-147); UREA NITROGEN (BUN) 30 mg/dL (9-23)
[2017-05-30 05:44] LABS: GLUCOSE 85 mg/dL (70-99)
[2017-05-30 07:30] VITALS: BP 131/69
[2017-05-30 12:02] VITALS: BP 117/67
[2017-05-30 17:22] VITALS: BP 140/78
[2017-05-30 23:11] LABS: APPEARANCE SL.HAZY ((CLEAR)); BILIRUBIN NEGATIVE; BLOOD NEGATIVE; COLOR YELLOW ((YELLOW)); GLUCOSE (STRIP) 50; KETONES 5; LEUKOCYTES TRACE; NITRITE NEGATIVE; PROTEIN (STRIP) 100; SPECIFIC GRAVITY 1.028 (1.000-1.030); UROBILINOGEN 0.2 MG/DL (0.2-1.0)
[2017-05-30 23:25] LABS: BACTERIA NONE SEEN /HPF; EPITHELIAL CELLS RARE /HPF; MUCUS TRACE /LPF; RED BLOOD CELLS 0-5 /HPF (0-5); UCUL ADDED? NO; WHITE BLOOD CELLS 0-5 /HPF (0-5)
[2017-05-31 00:56] VITALS: BP 142/78
[2017-05-31 05:01] LABS: HEMATOCRIT 37.1 % (38.0-50.0); HEMOGLOBIN 12.1 G/DL (12.5-16.6); MCH 26.4 PG (29.0-34.0); MCHC 32.6 G/DL (30.0-36.0); MCV 80.8 FL (86-99); PLATELET COUNT 227 K/uL (156-360); RBC DIS.WIDTH-CV 17.8 % (11.8-14.6); RBC DIS.WIDTH-SD 50.5 % (39-53); RED BLOOD COUNT 4.59 M/uL (4.00-5.50); WHITE BLOOD COUNT 7.9 K/uL (4.1-10.2)
[2017-05-31 05:14] LABS: CHLORIDE 109 mEq/L (99-109); POTASSIUM 3.3 mEq/L (3.7-5.4); SODIUM 145 mEq/L (136-147)
[2017-05-31 05:15] LABS: GLUCOSE 105 mg/dL (70-99)
[2017-05-31 05:19] LABS: GFR ESTIMATE (CALCULATED) > 59 mL/min/ (58.99-99999)
[2017-05-31 05:20] LABS: UREA NITROGEN (BUN) 26 mg/dL (9-23)
[2017-05-31 08:25] VITALS: BP 156/81
[2017-05-31 11:23] LABS: C DIFF TOXIN NEGATIVE (NEGATIVE)
[2017-05-31 16:02] VITALS: BP 123/58
[2017-05-31 23:14] VITALS: BP 140/72
[2017-06-01 08:34] VITALS: BP 138/75
[2017-06-01 09:07] LABS: HEMATOCRIT 40.3 % (38.0-50.0); MCH 26.3 PG (29.0-34.0); MCHC 32.3 G/DL (30.0-36.0); MCV 81.4 FL (86-99); RBC DIS.WIDTH-CV 18.7 % (11.8-14.6); RBC DIS.WIDTH-SD 52.2 % (39-53); RED BLOOD COUNT 4.95 M/uL (4.00-5.50); WHITE BLOOD COUNT 8.1 K/uL (4.1-10.2)
[2017-06-01 09:30] LABS: PLAT.SUFFICIENCY ADEQUATE; PLATELET CLUMPS PRESENT - PLATELET COUNT APPEARS ADQ.
[2017-06-01 09:35] LABS: PLATELET COUNT UNABLE TO REPORT K/uL (156-360)
[2017-06-01 09:37] LABS: CHLORIDE 110 MEQ/L (99-109); CREATININE 1.1 MG/DL (0.6-1.3); GFR ESTIMATE (CALCULATED) > 59 mL/min/ (58.99-99999); SODIUM 143 MEQ/L (136-147); UREA NITROGEN (BUN) 21 mg/dL (9-23)
[2017-06-01 09:46] LABS: GLUCOSE 176 mg/dL (70-99)
[2017-06-01 17:54] VITALS: BP 118/57
[2017-06-01 23:29] VITALS: BP 144/65
[2017-06-02 08:23] VITALS: BP 140/78
[2017-06-02 15:17] VITALS: BP 133/72
[2017-06-02 23:49] VITALS: BP 135/80
[2017-06-03 06:22] LABS: CHLORIDE 109 MEQ/L (99-109); GFR ESTIMATE (CALCULATED) > 59 mL/min/ (58.99-99999); GLUCOSE 211 mg/dL (70-99); POTASSIUM 3.8 MEQ/L (3.7-5.4); SODIUM 142 MEQ/L (136-147); UREA NITROGEN (BUN) 16 mg/dL (9-23)
[2017-06-03 07:15] VITALS: BP 133/64
[2017-06-03 11:04] VITALS: BP 126/58
[2017-06-03 15:45] VITALS: BP 136/74
[2017-06-04 00:15] VITALS: BP 133/70
[2017-06-04 06:12] LABS: HEMATOCRIT 37.6 % (38.0-50.0); HEMOGLOBIN 12.1 G/DL (12.5-16.6); MCH 25.9 PG (29.0-34.0); MCHC 32.2 G/DL (30.0-36.0); MCV 80.5 FL (86-99); PLATELET COUNT 228 K/uL (156-360); RBC DIS.WIDTH-CV 19.4 % (11.8-14.6); RBC DIS.WIDTH-SD 53.8 % (39-53); RED BLOOD COUNT 4.67 M/uL (4.00-5.50)
[2017-06-04 06:37] LABS: CHLORIDE 109 MEQ/L (99-109); CREATININE 1.1 MG/DL (0.6-1.3); GFR ESTIMATE (CALCULATED) > 59 mL/min/ (58.99-99999); GLUCOSE 238 mg/dL (70-99); POTASSIUM 4.1 MEQ/L (3.7-5.4); SODIUM 144 MEQ/L (136-147); UREA NITROGEN (BUN) 15 mg/dL (9-23)
[2017-06-04 09:05] VITALS: BP 124/70
[2017-06-04 23:21] VITALS: BP 115/67
[2017-06-05 05:03] LABS: HEMOGLOBIN 12.2 G/DL (12.5-16.6); MCH 26.7 PG (29.0-34.0); RBC DIS.WIDTH-CV 19.7 % (11.8-14.6); RBC DIS.WIDTH-SD 54.9 % (39-53); RED BLOOD COUNT 4.57 M/uL (4.00-5.50); WHITE BLOOD COUNT 12.9 K/uL (4.1-10.2)
[2017-06-05 05:15] LABS: CHLORIDE 109 mEq/L (99-109); POTASSIUM 3.9 mEq/L (3.7-5.4); SODIUM 142 mEq/L (136-147)
[2017-06-05 05:16] LABS: MAGNESIUM 1.3 mg/dL (1.3-2.7)
[2017-06-05 05:17] LABS: GLUCOSE 184 mg/dL (70-99)
[2017-06-05 05:21] LABS: CREATININE 1.1 mg/dL (0.6-1.3); GFR ESTIMATE (CALCULATED) > 59 mL/min/ (58.99-99999)
[2017-06-05 05:22] LABS: UREA NITROGEN (BUN) 13 mg/dL (9-23)
[2017-06-05 07:47] VITALS: BP 128/64
[2017-06-05 07:51] LABS: HEMATOLOGY COMMENT 1 SN; PLAT.SUFFICIENCY ADEQUATE; PLATELET COUNT 221 K/uL (156-360)
[2017-06-05 15:53] VITALS: BP 127/63
[2017-06-05 23:08] VITALS: BP 127/67
[2017-06-06 05:31] LABS: HEMATOCRIT 35.6 % (38.0-50.0); HEMOGLOBIN 11.5 G/DL (12.5-16.6); MCH 26.1 PG (29.0-34.0); MCHC 32.3 G/DL (30.0-36.0); MCV 80.7 FL (86-99); PLATELET COUNT 204 K/uL (156-360); RBC DIS.WIDTH-CV 19.3 % (11.8-14.6); RBC DIS.WIDTH-SD 54.6 % (39-53); RED BLOOD COUNT 4.41 M/uL (4.00-5.50); WHITE BLOOD COUNT 10.6 K/uL (4.1-10.2)
[2017-06-06 08:41] VITALS: BP 111/66
[2017-06-06] MEDS ORDERED: ACIDOPHILUS LA1 EACH PO (12:06)
[2017-06-06] MEDS ORDERED: LOPERAMIDE2 MG PO (12:06)
[2017-06-06] MEDS ORDERED: ACETAMINOPHEN-1 EAC1 PO (14:14)
[2017-06-06] MEDS ORDERED: CIPRO500 MG PO (14:30)
[2017-06-06] MEDS ORDERED: FLAGYL500 MG PO (14:30)
== END 2017-06-06 15:17 | disposition home or self-care (01) | DRG 392 ==
LOC: EME 16:39 → EDOF 22:56 → 3EAST 22:56 → ENRESERV 22:59 → 3EAST 23:54
PROVIDERS: Family Medicine; Hospitalist; Internal Medicine
DX: K52.9 Noninfective gastroenteritis and colitis, unspecified (principal); C18.4 Malignant neoplasm of transverse colon; E11.22 Type 2 diabetes mellitus with diabetic chronic kidney disease; E78.5 Hyperlipidemia, unspecified; E86.0 Dehydration; E87.6 Hypokalemia; E66.01 Morbid (severe) obesity due to excess calories; G47.33 Obstructive sleep apnea (adult) (pediatric); G89.29 Other chronic pain; I48.2 Chronic atrial fibrillation; Z95.3 Presence of xenogenic heart valve; I25.10 Atherosclerotic heart disease of native coronary artery without angina pectoris; J44.9 Chronic obstructive pulmonary disease, unspecified; Z68.36 Body mass index [BMI] 36.0-36.9, adult; K21.9 Gastro-esophageal reflux disease without esophagitis; Z66 Do not resuscitate; Z79.01 Long term (current) use of anticoagulants; Z96.653 Presence of artificial knee joint, bilateral
CPT/HCPCS: 74177; 80048; 80053; 81003; 82948; 83605; 83630; 83735; 85007; 85025; 85027; 86140; 87177; 87329; 87493; 87506; 94799; 99281; 99285; J0744; J1815; J2405; J3010; J7030; S0030